=== PATIENT | female | born 1955 | race Caucasian/White ===

== ENCOUNTER 2018-10-20 07:59 | Day surgery (SDC) | payer OTHER ==
[2018-10-20] MEDS: TETRACAINE 0.5% UNIT-DOSE OP PRN ×2 (08:07→08:53)
[2018-10-20] MEDS: BETADINE OPTH PREP OP PRN ×2 (08:07→08:53)
[2018-10-20] MEDS: CYCLOGYL 2% OPTH OP PRN ×3 (08:08→08:18)
[2018-10-20] MEDS ORDERED: LIDOCAINE 1% 20 ML MDV ID STA (08:24)
[2018-10-20] MEDS ORDERED: DEX-MOXI-KETOR OPTH INJ 1/0.5/0.4 MG/ML IO ONE (08:24)
[2018-10-20] MEDS ORDERED: BSS WITH EPINEPHRINE OP ONE (08:24)
[2018-10-20] MEDS ORDERED: LIDOCAINE 1%/PHENYLEPHRINE 1.5% BSS (SURGERY) INTRAOCULA ONE (08:24)
[2018-10-20] MEDS ORDERED: ZOFRAN 4 MG/2 ML IVP ONE (08:24)
[2018-10-20 08:31] VITALS: TEMP 98.2
[2018-10-20] MEDS ORDERED: ZOFRAN 4 MG/2 ML ONE (09:02)
[2018-10-20] MEDS ORDERED: VERSED ONE (09:02)
[2018-10-20] MEDS ORDERED: DIPRIVAN 20 ML VIAL IVP ONE (09:02)
[2018-10-20 12:51] VITALS: BP 156/86
== END 2018-10-20 10:00 | disposition home or self-care (01) ==
LOC: SURG 07:59
PROVIDERS: ATTEND Ophthalmology
DX: H25.811 Combined forms of age-related cataract, right eye (principal)